=== PATIENT | female | born 1995 | race Caucasian/White ===

== ENCOUNTER 2016-09-23 14:33 | Emergency (ER) | payer BC ==
[2016-09-23 15:27] LABS: Hematocrit 38 % (35-47); Hemoglobin 12.3 g/dl (12.0-16.0); Mean Corpuscular HGB Conc 32 g/dl (31-36); Mean Corpuscular Hemoglobin 25 pg (27-31); Mean Corpuscular Volume 77 fL (80-97); Red Blood Count 4.91 10^6/ul (4.0-5.4); Red Cell Distribution Width 16 % (10.5-15); White Blood Count 7.7 10^3/ul (3.5-10.8)
[2016-09-23 15:30] LABS: Comments Flag Yes
[2016-09-23 15:32] LABS: Add Diff/Slide Review? Slide Review Added
[2016-09-23 15:50] LABS: ALT 11 U/L (7-52); AST 13 U/L (13-39); Albumin 4.2 g/dL (3.2-5.2); Alkaline Phosphatase 61 U/L (34-104); Anion Gap 5 mmol/L (2-11); Blood Urea Nitrogen 12 mg/dL (6-24); CO2 Carbon Dioxide 27 mmol/L (22-32); Calcium 9.5 mg/dL (8.6-10.3); Chloride 104 mmol/L (101-111); EGFR African American 118.8 (>60); EGFR Non-African American 92.4 (>60); Glucose 94 mg/dL (70-100); Potassium 3.8 mmol/L (3.5-5.0); Sodium 136 mmol/L (133-145); Total Protein 7.2 g/dL (6.4-8.9)
[2016-09-23 16:13] VITALS: BP 112/75
[2016-09-23 16:13] LABS: T4 7.99 g/dL (6.09-12.23)
[2016-09-23 16:14] LABS: TSH (Thyroid Stimulating Horm) 1.31 mcIU/mL (0.34-5.60)
[2016-09-23 16:17] LABS: Mean Platelet Volume 11 um3 (7.4-10.4)
[2016-09-23] MEDS ORDERED: predniSONE TAB* 20 MG PO ONE (16:34)
[2016-09-23] MEDS ORDERED: predniSONE TAB* 5 MG PO ONE (16:34)
--- NOTE | 2016-09-24 07:32 | ED ---
Hayley Samuels Salem, scribed for Wes Swanson MD on 09/23/16 at 1615 . Complex/Multi-Sys Presentation - HPI Summary HPI Summary: Patient is a 20 y/o female who presents to the ED with a platelet count of 19 per [place]. She reports she has been experiencing increased ecchymosis and bleeding, as well as mild blood in the stool last week (for 3-4 days). She denies fever or hemoptysis. She reports that Tia took her blood in order to start her on antidepressants before making the discovery. Pt takes Singulair and Albuterol as needed. - History Of Current Complaint Chief Complaint: EDGeneral Time Seen by Provider: 09/23/16 15:04 Hx Obtained From: Patient Onset/Duration: Gradual Onset, Still Present Timing: Constant Severity Currently: Moderate Severity Initially: Moderate Associated Signs And Symptoms: Positive: Other - Increased ecchymosis and bleeding. Mild blood in the stool. No hemoptysis. - Allergies/Home Medications Allergies/Adverse Reactions: Allergies Allergy/AdvReac Type Severity Reaction Status Date / Time No Known Allergies Allergy Verified 11/10/15 06:22 PMH/Surg Hx/FS Hx/Imm Hx Previously Healthy: Yes Respiratory History: Reports: Hx Asthma Infectious Disease History: No Infectious Disease History: Denies: Traveled Outside the [place] in Last 30 Days - Family History Known Family History: Positive: Other - Grandparents. - Social History Alcohol Use: None Hx Substance Use: No Substance Use Type: Reports: None Hx Tobacco Use: No Smoking Status (MU): Never Smoked Tobacco Review of Systems Negative: Fever, Chills Negative: Erythema Negative: Sore Throat Negative: Chest Pain Respiratory: Other - No hemoptysis. Negative: Shortness Of Breath, Cough Negative: Abdominal Pain, Vomiting, Nausea Negative: dysuria, hematuria Negative: Myalgia, Decreased ROM Positive: Bruising - Easily. . Negative: Rash Neurological: Other - No dizziness. All Other Systems Reviewed And Are Negative: Yes Physical Exam - Summary Physical Exam Summary: Constitutional: Well-developed, Well-nourished, Alert. (-) Distressed Skin: Warm, Dry HENT: Normocephalic; Atraumatic Eyes: Conjunctiva normal Neck: Musculoskeletal ROM normal neck. (-) JVD, (-) Stridor, (-) Tracheal deviation Cardio: Rhythm regular, rate normal, Heart sounds normal; Intact distal pulses; The pedal pulses are 2+ and symmetric. Radial pulses are 2+ and symmetric. (-) Murmur Pulmonary/Chest wall: Effort normal. (-) Respiratory distress, (-) Wheezes, (-) Rales Abd: Soft, (-) Tenderness, (-) Distension, (-) Guarding, (-) Rebound Musculoskeletal: (-) Edema Lymph: (-) Cervical adenopathy Neuro: Alert, Oriented x3 Psych: Mood and affect Normal Triage Information Reviewed: Yes Vital Signs On Initial Exam: Initial Vitals Temp Pulse Resp BP Pulse Ox 97.3 F 70 18 124/70 100 09/23/16 14:36 09/23/16 14:36 09/23/16 14:36 09/23/16 14:36 09/23/16 14:36 Vital Signs Reviewed: Yes Diagnostics - Vital Signs Vital Signs Temp Pulse Resp BP Pulse Ox 09/23/16 16:04 98.4 F 80 20 112/75 100 09/23/16 14:36 97.3 F 70 18 124/70 100 - Laboratory Lab Results: Lab Results 09/23/16 09/23/16 09/23/16 Range/Units 15:16 15:16 15:16 WBC 7.7 (3.5-10.8) 10^3/ul RBC 4.91 (4.0-5.4) 10^6/ul Hgb 12.3 (12.0-16.0) g/dl Hct 38 (35-47) % MCV 77 L (80-97) fL MCH 25 L (27-31) pg MCHC 32 (31-36) g/dl RDW 16 H (10.5-15) % Plt Count Pending MPV Pending Neut % (Auto) 57.0 (38-83) % Lymph % (Auto) 34.8 (25-47) % [place] % (Auto) 6.9 (1-9) % Eos % (Auto) 0.9 (0-6) % Baso % (Auto) 0.4 (0-2) % Absolute Neuts (auto) 4.4 (1.5-7.7) 10^3/ul Absolute Lymphs (auto) 2.7 (1.0-4.8) 10^3/ul Absolute Monos (auto) 0.5 (0-0.8) 10^3/ul Absolute Eos (auto) 0.1 (0-0.6) 10^3/ul Absolute Basos (auto) 0 (0-0.2) 10^3/ul Absolute Nucleated RBC 0 10^3/ul Nucleated RBC % 0 INR (Anticoag Therapy) 0.92 (0.89-1.11) APTT 30.3 (26.0-36.3) seconds Sodium 136 (133-145) mmol/L Potassium 3.8 (3.5-5.0) mmol/L Chloride 104 (101-111) mmol/L Carbon Dioxide 27 (22-32) mmol/L Anion Gap 5 (2-11) mmol/L BUN 12 (6-24) mg/dL Creatinine 0.80 (0.51-0.95) mg/dL Est GFR ( Amer) 118.8 (>60) Est GFR (Non-Af Amer) 92.4 (>60) BUN/Creatinine Ratio 15.0 (8-20) Glucose 94 (70-100) mg/dL Calcium 9.5 (8.6-10.3) mg/dL Total Bilirubin 0.40 (0.2-1.0) mg/dL AST 13 (13-39) U/L ALT 11 (7-52) U/L Alkaline Phosphatase 61 (34-104) U/L Total Protein 7.2 (6.4-8.9) g/dL Albumin 4.2 (3.2-5.2) g/dL Globulin 3.0 (2-4) g/dL Albumin/Globulin Ratio 1.4 (1-3) TSH 1.31 (0.34-5.60) mcIU/mL Thyroxine (T4) 7.99 (6.09-12.23) g/dL Result Diagrams: 09/23/16 15:16 09/23/16 15:16 Lab Statement: Any lab studies that have been ordered have been reviewed, and results considered in the medical decision making process. Complex Multi-Symp Course/Dx Course Of Treatment: Pt presents with low platelet count. Advised her to have situational awareness and to avoid falls or new shoes, as well as partying or drinking. - Diagnoses Provider Diagnoses: Thrombocytopenia - Physician Notifications Discussed Care Of Patient With: Dr. Yap (pt's PCP in [place], [place]) @ 7515. Discussed pt's case. Dr. Wilder (Oncology/Hematology) @ 9628. Dr. Wilder recommended Prednisone 1mg if above 10. Will call her in the morning for an appointment before 1000. Discharge - Discharge Plan Condition: Stable Disposition: HOME Patient Education Materials: Thrombocytopenia (ED) Forms: *School Release Referrals: [facility] PHYSICIAN REFERRAL [Outside] Additional Instructions: Follow up with [facility] Referral. The documentation as recorded by the Hayley cast Salem accurately reflects the service I personally performed and the decisions made by , Wes Swanson MD.
== END 2016-09-23 16:52 | disposition home or self-care (01) ==
LOC: ED 14:33
DX: D69.6 Thrombocytopenia, unspecified (principal)
CPT/HCPCS: 36415; 80053; 80074; 84436; 84443; 84702; 85025; 85610; 85730; 86703; 86850; 86900; 86901; 99282; J7512

== ENCOUNTER 2017-03-14 16:23 | Emergency (ER) | payer BC ==
[2017-03-14] MEDS ORDERED: Ondansetron INJ* 2 MG/ML VIAL IV ONE (18:48)
[2017-03-14] MEDS ORDERED: NS 0.9% 1000 ML* 1,000 ML IV ONE (18:48)
[2017-03-14 19:13] LABS: Hematocrit 39 % (35-47); Hemoglobin 13.1 g/dl (12.0-16.0); Mean Corpuscular HGB Conc 34 g/dl (31-36); Mean Corpuscular Hemoglobin 29 pg (27-31); Mean Corpuscular Volume 86 fL (80-97); Mean Platelet Volume 9 um3 (7.4-10.4); Red Blood Count 4.54 10^6/ul (4.0-5.4); Red Cell Distribution Width 14 % (10.5-15); White Blood Count 9.2 10^3/ul (3.5-10.8)
[2017-03-14 19:47] LABS: ALT 13 U/L (7-52); AST 14 U/L (13-39); Albumin 4.4 g/dL (3.2-5.2); Alkaline Phosphatase 68 U/L (34-104); Anion Gap 8 mmol/L (2-11); BUN/Creatinine Ratio 23.5 (8-20); Blood Urea Nitrogen 16 mg/dL (6-24); CO2 Carbon Dioxide 26 mmol/L (22-32); Calcium 9.3 mg/dL (8.6-10.3); Chloride 102 mmol/L (101-111); EGFR African American 141.9 (>60); EGFR Non-African American 110.3 (>60); Globulin 2.8 g/dL (2-4); Glucose 94 mg/dL (70-100); Potassium 3.7 mmol/L (3.5-5.0); Sodium 136 mmol/L (133-145); Total Protein 7.2 g/dL (6.4-8.9)
[2017-03-14] MEDS ORDERED: Ondansetron ODT TAB* 4 MG PO ONE (20:28)
[2017-03-14 21:09] VITALS: BP 98/46
--- NOTE | 2017-03-14 21:27 | ED ---
Jessica Samuels Alfonso, scribed for Quintin Mendes MD on 03/14/17 at 1839 . GI/ HPI - HPI Summary HPI Summary: This patient is a 21 year old F presenting to [facility] with a chief complaint of vaginal and rectal bleeding since 3 weeks ago. She reports the blood has been both dark and bright red. She states that her menstrual cycles have been inconsistent, with 3 periods in this last month. The patient rates the pain 0/ 10 in severity. Symptoms aggravated by nothing. Symptoms alleviated by nothing. Patient reports chills, nausea, vomiting (hematemesis once in the 6 episodes since 05 today), diarrhea, low back pain, and generalized weakness. Patient denies rash. PMHx includes ITP. - History of Current Complaint Chief Complaint: EDGIBleed Time Seen by Provider: 03/14/17 18:25 Stated Complaint: VOMITTING,HEAVY BLEEDING Hx Obtained From: Patient Onset/Duration: Started Weeks Ago - 3, Still Present Timing: Constant Vaginal Bleeding Description: Bright Red, Dark Red Pain Intensity: 0 Associated Signs and Symptoms: Positive: Other: - chills, nausea, vomiting ( hematemesis once in the 6 episodes since 05 today), diarrhea, low back pain, and generalized weakness; negative rash Aggravating Factor(s): Nothing Alleviating Factor(s): Nothing - Allergy/Home Medications Allergies/Adverse Reactions: Allergies Allergy/AdvReac Type Severity Reaction Status Date / Time No Known Allergies Allergy Verified 11/10/15 06:22 PMH/Surg Hx/FS Hx/Imm Hx Cardiovascular History: Reports: Other Cardiovascular Problems/Disorders - ITP Respiratory History: Reports: Hx Asthma Opthamlomology History: Denies: Hx Legally Blind EENT History: Denies: Hx Deafness Infectious Disease History: No Infectious Disease History: Denies: Traveled Outside the [place] in Last 30 Days - Family History Known Family History: Negative: Cardiac Disease, Diabetes - Social History Alcohol Use: None Hx Substance Use: No Substance Use Type: Reports: None Hx Tobacco Use: No Smoking Status (MU): Never Smoked Tobacco Review of Systems Positive: Chills Positive: Vomiting - hematemesis once in the 6 episodes since 0530 today), Diarrhea, Nausea, Other - rectal bleeding Positive: other - vaginal bleeding Positive: Other - low back pain, Negative: Rash Positive: Weakness All Other Systems Reviewed And Are Negative: Yes Physical Exam Triage Information Reviewed: Yes Vital Signs On Initial Exam: Initial Vitals Temp Pulse Resp BP Pulse Ox 98.7 F 98 17 105/60 98 03/14/17 16:39 03/14/17 16:39 03/14/17 16:39 03/14/17 16:39 03/14/17 16:39 Vital Signs Reviewed: Yes Appearance: Positive: Well-Appearing, No Pain Distress Skin: Positive: Warm, Skin Color Reflects Adequate Perfusion, Dry Head/Face: Positive: Normal Head/Face Inspection Eyes: Positive: Normal ENT: Positive: Normal ENT inspection Neck: Positive: Supple, Nontender Respiratory/Lung Sounds: Positive: Clear to Auscultation, Breath Sounds Present Cardiovascular: Positive: RRR Abdomen Description: Positive: Nontender, Soft Bowel Sounds: Positive: Present Musculoskeletal: Positive: Normal Neurological: Positive: Normal, Sensory/Motor Intact, Alert, Oriented to Person Place, Time Psychiatric: Positive: Affect/Mood Appropriate - Ilia Coma Scale Coma Scale Total: 15 Diagnostics - Vital Signs Vital Signs Temp Pulse Resp BP Pulse Ox 03/14/17 18:15 94 99 03/14/17 18:13 115/63 03/14/17 18:08 98.8 F 94 16 115/63 100 03/14/17 16:39 98.7 F 98 17 105/60 98 - Laboratory Lab Results: Lab Results 03/14/17 03/14/17 Range/Units 18:57 18:57 WBC 9.2 (3.5-10.8) 10^3/ul RBC 4.54 (4.0-5.4) 10^6/ul Hgb 13.1 (12.0-16.0) g/dl Hct 39 (35-47) % MCV 86 (80-97) fL MCH 29 (27-31) pg MCHC 34 (31-36) g/dl RDW 14 (10.5-15) % Plt Count 165 (150-450) 10^3/ul MPV 9 (7.4-10.4) um3 Neut % (Auto) 85.5 H (38-83) % Lymph % (Auto) 8.1 L (25-47) % [place] % (Auto) 6.2 (1-9) % Eos % (Auto) 0.1 (0-6) % Baso % (Auto) 0.1 (0-2) % Absolute Neuts (auto) 7.9 H (1.5-7.7) 10^3/ul Absolute Lymphs (auto) 0.7 L (1.0-4.8) 10^3/ul Absolute Monos (auto) 0.6 (0-0.8) 10^3/ul Absolute Eos (auto) 0 (0-0.6) 10^3/ul Absolute Basos (auto) 0 (0-0.2) 10^3/ul Absolute Nucleated RBC 0 10^3/ul Nucleated RBC % 0 Sodium 136 (133-145) mmol/L Potassium 3.7 (3.5-5.0) mmol/L Chloride 102 (101-111) mmol/L Carbon Dioxide 26 (22-32) mmol/L Anion Gap 8 (2-11) mmol/L BUN 16 (6-24) mg/dL Creatinine 0.68 (0.51-0.95) mg/dL Est GFR ( Amer) 141.9 (>60) Est GFR (Non-Af Amer) 110.3 (>60) BUN/Creatinine Ratio 23.5 H (8-20) Glucose 94 (70-100) mg/dL Calcium 9.3 (8.6-10.3) mg/dL Total Bilirubin 0.70 (0.2-1.0) mg/dL AST 14 (13-39) U/L ALT 13 (7-52) U/L Alkaline Phosphatase 68 (34-104) U/L Total Protein 7.2 (6.4-8.9) g/dL Albumin 4.4 (3.2-5.2) g/dL Globulin 2.8 (2-4) g/dL Albumin/Globulin Ratio 1.6 (1-3) Beta HCG, Quant < 0.60 mIU/mL Result Diagrams: 03/14/17 18:57 03/14/17 18:57 Lab Statement: Any lab studies that have been ordered have been reviewed, and results considered in the medical decision making process. - EKG 1834 Cardiac Rate: Tachycardia - BPM 98 EKG Rhythm: Sinus Tachycardia EKG Interpretation: NAD Re-Evaluation - Re-Evaluation First Eval Re-Evaluation Time: 20:24 Change: Improved Comment: Patient reports feeling much better and tolerates PO. GIGU Course/Dx - Course Course Of Treatment: Olimpia White presented with nausea, vomiting and diarrhea for a day or so. She has seen blood in the watery diarrhea and once in the vomitus and became concerned as she has ITP. Her platelets were fine here at 165 and she felt much improved with fluids and Zofran. I think it's likely she has a virus. - Diagnoses Provider Diagnoses: Viral syndrome Discharge - Discharge Plan Condition: Stable Disposition: HOME Patient Education Materials: Acute Nausea and Vomiting (ED) Referrals: [facility] [Primary Care Provider] - 3 Days The documentation as recorded by the Jessica cast Alfonso accurately reflects the service I personally performed and the decisions made by me, Quintin Mendes MD.
== END 2017-03-14 21:10 | disposition home or self-care (01) ==
LOC: ED 16:23
DX: B34.9 Viral infection, unspecified (principal); R11.2 Nausea with vomiting, unspecified; R19.7 Diarrhea, unspecified; M54.5 Low back pain; R53.1 Weakness
CPT/HCPCS: 36415; 80053; 84702; 85025; 93005; 96374; 99282; A9270-GY; J2405

== ENCOUNTER 2018-05-09 06:16 | Emergency (ER) | payer BC ==
[2018-05-09] MEDS ORDERED: Ondansetron INJ* 2 MG/ML VIAL IV ONE (06:29)
[2018-05-09] MEDS ORDERED: Albuterol/Ipratropium NEB.SOL* Albuterol 2.5 MG/Ipratropium 0.5 MG 3 ML INH ONE (06:29)
[2018-05-09] MEDS ORDERED: NS 0.9% 1000 ML* 1,000 ML IV ONE (06:29)
[2018-05-09] MEDS ORDERED: Albuterol/Ipratropium NEB.SOL* Albuterol 2.5 MG/Ipratropium 0.5 MG 3 ML ONE (06:29)
[2018-05-09] MEDS ORDERED: Ondansetron ODT TAB* 4 MG PO ONE (06:29)
--- NOTE | 2018-05-09 06:30 | ED ---
Respiratory - HPI Summary HPI Summary: Patient is a 22-year-old female who presents emergency department for shortness of breath, wheezing and posttussive vomiting. Patient is a history of asthma and depression. She states she was seen at an urgent care about 2 weeks ago and placed on a 2 week course of prednisone which she finished 2 days ago. Patient states since stopping prednisone to his been feeling more short of breath and has been coughing more. She notes this morning she was having numerous episodes of vomiting. Symptoms are moderate in severity. No current modifying factors. Patient states she occasionally has asthma exacerbations. Advised denies recent fever, sore throat, sinus congestion, abdominal pain, diarrhea. Immunizations are up-to-date. - History of Current Complaint Chief Complaint: EDAsthma Stated Complaint: ASTHMA Time Seen by Provider: 05/09/18 06:23 Hx Obtained From: Patient Pain Intensity: 2 - Allergy/Home Medications Allergies/Adverse Reactions: Allergies Allergy/AdvReac Type Severity Reaction Status Date / Time No Known Allergies Allergy Verified 05/09/18 06:19 PMH/Surg Hx/FS Hx/Imm Hx Previously Healthy: Yes Cardiovascular History: Reports: Other Cardiovascular Problems/Disorders - ITP Respiratory History: Reports: Hx Asthma Sensory History: Denies: Hx Legally Blind, Hx Deafness Opthamlomology History: Denies: Hx Legally Blind Infectious Disease History: No Infectious Disease History: Denies: Traveled Outside the [place] in Last 30 Days - Family History Known Family History: Positive: None, Other - Grandparents. Negative: Cardiac Disease, Diabetes Family History: R & n/C - Social History Occupation: Student Lives: Dormitory/Roommates Alcohol Use: Weekly Hx Substance Use: No Substance Use Type: Reports: None Hx Tobacco Use: No Smoking Status (MU): Never Smoked Tobacco Review of Systems Constitutional: Negative Negative: Fever, Chills Eyes: Negative ENT: Negative Cardiovascular: Negative Negative: Palpitations, Chest Pain Positive: Shortness Of Breath, Cough Positive: Vomiting, Nausea. Negative: Abdominal Pain, Diarrhea Musculoskeletal: Negative Skin: Negative Neurological: Negative All Other Systems Reviewed And Are Negative: Yes Physical Exam Triage Information Reviewed: Yes Vital Signs On Initial Exam: Initial Vitals Temp Pulse Resp BP Pulse Ox 98.3 F 103 20 153/131 95 05/09/18 06:17 05/09/18 06:17 05/09/18 06:17 05/09/18 06:17 05/09/18 06:17 Vital Signs Reviewed: Yes Appearance: Positive: Well-Nourished - Patient sitting up in bed, appears tired no acute distress. Speaking in full sentences. Significant other present. Skin: Positive: Warm, Dry Head/Face: Positive: Normal Head/Face Inspection Eyes: Positive: Normal, EOMI Neck: Positive: Supple. Negative: Nuchal Rigidity Respiratory/Lung Sounds: Positive: Other - Diminished breath sounds through out. Cardiovascular: Positive: Normal, RRR Neurological: Positive: Normal, CN Intact II-III Psychiatric: Positive: Affect/Mood Appropriate Diagnostics - Vital Signs Vital Signs Temp Pulse Resp BP Pulse Ox 05/09/18 06:17 98.3 F 103 20 153/131 95 - Laboratory Result Diagrams: 05/09/18 06:42 05/09/18 06:42 Lab Statement: Any lab studies that have been ordered have been reviewed, and results considered in the medical decision making process. Disposition - Course Course Of Treatment: Patient presenting for increased cough and wheeze posttussive vomiting. She is afebrile. Oxygen saturation is 95% room air which is low normal. HR mildly elevated. No signs of respiratory distress at this time. Pt. has mild tightness to her lungs but no significant wheezing. She is hormonal control so PE is in the differential, ddimer and basic labs ordered. Will start patient on DuoNeb treatment and check basic blood work and chest x-ray to evaluate for pneumonia. Cough medicine also given. CXR is negative for infiltrate, per radiology. Normal wbc. K mildly low at 3.1. Ddimer significantly elevated at 679, CTA ordered to evaluate for pe. CTA is negative for acute findings, per radiology. On re-exam pt. is moving air better and states she is feeling much better, coughing and SOB has improved. O2 saturation has improved to high 90's. Discussed with Dr. Jimenez who recommends starting pt. on a tapered course of prednisone. Advised to continue MDI 2 puffs every 4 hours as needed. TO increased fluids and rest. Pt. states she has an apt. with her PCP next week. To return to ER if sxs change or worsen. Pt. understands and agrees with plan. - Differential Dx - Cardiopulmonary Differential Diagnoses - Cardiopulmonary: Asthma, Lower Resp Infection, Pericarditis, Pleurisy, Pneumothorax, Pulmonary Embolism - Diagnoses Provider Diagnoses: Asthma exacerbation Discharge - Sign-Out/Discharge Documenting (check all that apply): Patient Departure - Discharge Plan Condition: Improved Disposition: HOME Prescriptions: guaiFENesin LIQ* [Robitussin*] 10 ml PO Q6H PRN #60 udc PRN Reason: Cough predniSONE TAB* [Deltasone TAB*] 5 mg PO DAILY #23 tab Patient Education Materials: Asthma (ED) [facility] - Additional Instructions: Follow up with your PCP as scheduled for next week Medication as prescribed Continue home medications as directed Use albuterol inhaler 2 puffs every 4 hours as needed Return to ER if symptoms change or worsen - Billing Disposition and Condition Condition: IMPROVED Disposition: Home
[2018-05-09 06:53] LABS: Hematocrit 37 % (35-47); Hemoglobin 12.7 g/dl (12.0-16.0); Mean Corpuscular HGB Conc 34 g/dl (31-36); Mean Corpuscular Hemoglobin 28 pg (27-31); Mean Corpuscular Volume 82 fL (80-97); Mean Platelet Volume 8.9 fL (7.4-10.4); Platelet Count 184 10^3/ul (150-450); Red Blood Count 4.55 10^6/ul (4.00-5.40); Red Cell Distribution Width 13 % (10.5-15); White Blood Count 10.6 10^3/ul (3.5-10.8)
[2018-05-09 07:09] LABS: EGFR Non-African American 109.2 (>60)
[2018-05-09 07:36] LABS: ABS Basophils 0 10^3/ul (0-0.2); ABS Eosinophils 0.1 10^3/ul (0-0.6); ABS Lymphocytes 3.7 10^3/ul (1.0-4.8); ABS Monocytes 0.9 10^3/ul (0-0.8); ABS Neutrophils 5.9 10^3/ul (1.5-7.7); ABS Nucleated RBC 0 10^3/ul; Eosinophil % 1.3 % (0-6); Lymphocyte % 34.8 % (25-47); Nucleated Red Blood Cells % 0.2
[2018-05-09] MEDS ORDERED: guaiFENesin LIQ* 100 MG/5 ML UDC PO ONE (08:04)
[2018-05-09] MEDS ORDERED: Iohexol 350* (CONTRAST) 500 ML MDV IV ONE (08:05)
[2018-05-09 10:45] VITALS: BP 108/75
== END 2018-05-09 10:45 | disposition home or self-care (01) ==
LOC: ED 06:16
DX: J45.901 Unspecified asthma with (acute) exacerbation (principal); D69.3 Immune thrombocytopenic purpura
CPT/HCPCS: 36415; 71046; 71275; 80053; 84702; 85025; 85379; 96361; 96374; 96375; 99283; A9270-GY; J2405; Q9967